=== PATIENT | female | born 1955 ===

== ENCOUNTER 2017-06-28 10:39 | Outpatient (CLI) | payer BC ==
[2017-06-28] MEDS ORDERED: ISOVUE-370 76%-LOCM 1 ML ONE (13:12)
== END 2017-06-28 10:40 | disposition home or self-care (01) ==
LOC: BICCT 10:39
PROVIDERS: ATTEND Internal Medicine Gastroenterology
DX: K57.90 Diverticulosis of intestine, part unspecified, without perforation or abscess without bleeding (principal); Z83.79 Family history of other diseases of the digestive system
CPT/HCPCS: 74177